=== PATIENT | female | born 1975 | race Caucasian/White ===

== ENCOUNTER 2021-01-07 23:33 | Emergency (ER) | payer OTHER ==
[~2021-01-07] VITALS: Ht 152.4 cm; Wt 81.6 kg
[~2021-01-07 23:33] MED LIST: CLARITIN10 MG PO
[2021-01-08] MEDS ORDERED: ORPHENADRINE C100 MG PO (05:59)
[2021-01-08] MEDS ORDERED: KETO10TA2 PO (05:59)
[2021-01-08] MEDS ORDERED: CEFUROXIME500 MG PO (05:59)
== END 2021-01-08 06:03 | disposition home or self-care (01) ==
LOC: ER 23:33
DX: R10.31 Right lower quadrant pain (principal)

== ENCOUNTER 2022-11-02 00:04 | Emergency (ER) | payer OTHER ==
[~2022-11-02] VITALS: Ht 152.4 cm; Wt 84.4 kg
[~2022-11-02 00:04] MED LIST changes: +CEFUROXIME500 MG PO; +KETO10TA2 PO; +ORPHENADRINE C100 MG PO
== END 2022-11-02 04:27 | disposition home or self-care (01) ==
LOC: ER 00:04
DX: R42 Dizziness and giddiness (principal)